=== PATIENT | female | born 1930 | race Caucasian/White ===

== ENCOUNTER 2016-07-06 11:47 | Inpatient (IN) | payer MEDICARE ==
--- NOTE | ~2016-07-06 | HP ---
History And Physical [facility] [address] [place] [address] NAME: YEIMY ALICEA : 32 STATUS : ADM Krissy PAT#: [id number] AGE: 85 ADM/REG DATE : 07/06/16 MR#: [id number] REPORT SERV DATE: 07/06/16 DICTATED BY: DIYA ANDINO DATE: 07/06/16 REPORT STATUS : Draft TRANSCRIBED BY: MODL DATE: 07/06/16 DATE OF ADMISSION: 07/06/2016 CHIEF COMPLAINT: Multiple. HISTORY OF PRESENT ILLNESS: The patient is an 85-year-old white female, who was actually just discharged from [facility] on 07/04/[address] Danuta Willingham. At that time, she had a fairly interesting hospital stay. She initially presented complaining of depression, confusion, abdominal pain. She had had weight loss and complained of lower abdominal pain. She had some nausea and some intermittent vomiting. She had an extensive evaluation during that stay. She had two CTs, one with contrast, one without. It looks like on CT, she may have had an acute enteritis. She also had a mesenteric duplex which was negative. She was ultimately treated with Flagyl and Levaquin. Her stool studies were negative. She did not have C difficile as she did not enough diarrhea to really even provide a stool for C difficile. She saw GI and the plan was to have her have an outpatient colonoscopy at some point. While she was there, she had an incidental leukocytosis, which was unexplained. All of her cultures were negative. Her CT scan really did not explain her white count and she was ultimately seen by Dr. Cummings. He saw the patient and thought that she probably had a reactive leukocytosis and thrombocytosis related to her enteritis and recommended followup in his office with possible bone marrow if it persisted. She states she went home, she did okay for about 24 hours, and then she started to have weakness. She states when she got up, she felt like she was going to pass out, she had difficulty walking, she was so weak. She had some associated nausea and some lower abdominal pain, but also had some new sputum that she did not have prior. Although she denies cough, she states she is coughing up sputum, it is bit difficult to tell the exact history. She denies fever, chest pain. Denies any upper abdominal pain. Has a documented temp at home. She has been eating or drinking when prompted. She continues to suffer from what sounds like some dementia symptoms, she has had memory loss that her brother has noticed, but no other real complaints. PAST MEDICAL HISTORY: 1. Depression. 2. Enteritis. 3. Hypertension. 4. Hyponatremia. 5. Leukocytosis. 6. 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 SOCIAL HISTORY: She does not drink or smoke. She currently has a brother who is living with her while she is sick, but previously she was independent. ALLERGIES: SULFA. PAST SURGICAL HISTORY: She has had a cholecystectomy, appendectomy. HOME MEDICATIONS: Reviewed and attached. History And Physical [address] [address] NAME: YEIMY ALICEA : 32 STATUS : ADM Krissy PAT#: [id number] AGE: 85 ADM/REG DATE : 07/06/16 MR#: [id number] REPORT SERV DATE: 07/06/16 DICTATED BY: DIYA ANDINO DATE: 07/06/16 REPORT STATUS : Draft TRANSCRIBED BY: TRINY DATE: 07/06/16 REVIEW OF SYSTEMS: A full 10-point review of systems was obtained. Pertinent positives already mentioned in the HPI. PHYSICAL EXAMINATION: VITAL SIGNS: BP 175/90, sats are 94%, temp 97.9, pulse 75, respiratory rate 16. GENERAL: Well-developed white female, in no obvious distress. HEENT: Normocephalic, atraumatic. Throat is clear. NECK: Supple. HEART: Regular rate and rhythm, but irregularly irregular. LUNGS: Grossly clear. ABDOMEN: Soft, nondistended, nontender. Positive bowel sounds are noted. EXTREMITIES: Warm and dry. She has no rashes noted. Pulses are 2+ at the feet. NEURO: Her speech is intact. Cranial nerves 2 through 12 are intact. She has symmetrical strength and tone in all four extremities. LABORATORY AND X-RAY: Chest x-ray shows a questionable left lower lobe infiltrate. CBC, white count 28.9, H and H 12 and 35, platelet count is 734. Coags are normal. Lactate is 1.8. Sodium 129, potassium 3.5, chloride 88, CO2 of 27, BUN and creatinine 12.1 and 0.55, glucose 165, albumin is 1.9. LFTs are normal. Lipase is 58. Troponins 0.02. All of her cultures from her previous visit including her stool and blood cultures were negative. ASSESSMENT/PLAN: 1. Nausea, vomiting with associated occasional intermittent abdominal pain. Workup so far negative with a white count of 28.9. Certainly, must consider more serious process. Her stool studies were initially negative, this did not include C difficile as she has not had diarrhea. She is not having diarrhea now. I think given her white count of 28.9 and no clear etiology, we would like to at least scan her one more time to make sure we are not missing something. She had a negative CT of her abdomen and pelvis. We will repeat her stool studies, if she has any additional diarrhea and go from there. 2. Sputum production with a new left lower lobe infiltrate. Certainly, pneumonia could cause the leukocytosis, although she does not have typical symptoms of pneumonia. She has no real cough. She is not hypoxemic. She does have a white count which I think we absolutely have to explain and rule out pneumonia, I am going to CT her chest while she is here also. We will culture her blood, her sputum. We will check a procalcitonin. I am going to place her empirically on some cefepime and vancomycin given the fact that she was recently in the hospital. 3. Recent enteritis. Again, repeating CT scan. 4. Leukocytosis, etiology still unclear. Certainly, could be noninfectious, but I think we should rule that out again. We will do urine culture, blood culture, check a procalcitonin. Again, we are going to re-image her abdomen and chest to make sure we are not missing something. If this is all negative, then we will have Dr. Cummings come back for likely a bone marrow biopsy. 5. Depression. Continue antidepressant. She saw Psych last time when she was here. I do not think she needs additional psych eval. 6. Recent onset of what sounds like dementia symptoms. Difficult to tell exactly how long History And Physical [address] [place]. [address] NAME: YEIMY ALICEA : 32 STATUS : ADM Krissy PAT#: [id number] AGE: 85 ADM/REG DATE : 07/06/16 MR#: [id number] REPORT SERV DATE: 07/06/16 DICTATED BY: DIYA ANDINO DATE: 07/06/16 REPORT STATUS : Draft TRANSCRIBED BY: TRINY DATE: 07/06/16 these have been going on because she was living by herself prior to her brother's arrival. I think we should continue to treat depression. I think she does need an MRI of her brain given that they think these symptoms are relatively new onset just to look for any findings of stroke or other explanations for her memory difficulties. 7. Hyponatremia. We will give some hydration with normal saline. I am also going to check an a.m. cortisol to rule out adrenal insufficiency. She has already had her thyroid function checked and it looked normal. 8. Protein-calorie malnutrition. She has diminished albumin. I am going to check a pre- albumin. She likely needs some supplements. She has not been eating well for sometime since she has been depressed about her . 9. Deep venous thrombosis prophylaxis. Subcutaneous Lovenox. 10.Disposition, pending above. MALENA/TRINY Diya Andino M.D. / [id number] CC: MD Terrie Alfaro [facility]
--- NOTE | ~2016-07-06 | IDS ---
Interim Discharge Summary [facility] [address] [place]. [address] NAME: YEIMY ALICEA : 32 STATUS : ADM IN PAT#: [id number] AGE: 85 ADM/REG DATE : 07/07/16 MR#: [id number] REPORT SERV DATE: 07/13/16 DICTATED BY: NADEGE CRABTREE DATE: 07/12/16 REPORT STATUS : Draft TRANSCRIBED BY: MODAlesha DATE: 07/12/16 ADMISSION DATE: 07/07/2016 DISCHARGE DATE: CURRENT ADMISSION DIAGNOSES: 1. Nausea and abdominal pain, resolved. 2. Physical deconditioning, pending rehab placement. 3. Leukocytosis. 4. Thrombocytosis. 5. Hypertension. 6. Depression. 7. Constipation, resolved. 8. Depression. 9. Currently being worked up by Oncology for myeloproliferative disorder. CURRENT CONDITION: Stable for discharge. CONSULTATION: Oncology. BRIEF HISTORY OF PRESENT ILLNESS: This is an 85-year-old female, who was recently discharged from [facility] on 07/04/2016, readmitted on 07/09/2016, with concerns for nausea, vomiting, and abdominal pain. In previous admission, the patient had extensive workup with CT of the abdomen that shows no evidence of acute intra-abdominal process, had a mesenteric Doppler that was negative. On readmission, the patient was noted to continued to have persistent leukocytosis and thrombocytosis. The patient was admitted to the Hospitalist Service for evaluation of etiology of nausea, vomiting, and intermittent abdominal pain as well as for further workup of leukocytosis and thrombocytosis and also a possible questionable pneumonia. HOSPITAL COURSE: 1. Nausea and vomiting. The patient had intermittent abdominal pain. The patient has an extensive workup, CT negative, mesenteric Doppler, CT abdomen pelvis negative, mesenteric Doppler negative, hepatic echo Doppler also negative for Budd-Chiari. The patient had a bowel movement yesterday and reported significant improvement in the nausea and vomiting. The patient was able to tolerate the lunch today without any further abdominal pain, nausea, or vomiting. The patient is currently stable for discharge. The patient was evaluated by physical therapy and recommended the patient to be discharged to acute rehab. The patient is currently placed in rehab and currently in discussion with brother. The patient will likely be discharged to rehab tomorrow. 2. Leukocytosis. The patient on initial admission noted to have leukocytosis in the 20,000, initially thought to be due to possible pneumonia. The patient had an extensive period of broad-spectrum IV antibiotics, IV vancomycin, and Zosyn. Despite seven days therapy of IV vancomycin and Zosyn, the patient's leukocytosis remained persistent. Oncology was consulted for possible workup for myeloproliferative disorder. Multiple Oncology tracts were ordered including blood test, PCR test, which Interim Discharge Summary [address] [address] NAME: YEIMY ALICEA : 32 STATUS : ADM IN PAT#: [id number] AGE: 85 ADM/REG DATE : 07/07/16 MR#: [id number] REPORT SERV DATE: 07/13/16 DICTATED BY: NADEGE CRABTREE DATE: 07/12/16 REPORT STATUS : Draft TRANSCRIBED BY: TRINY DATE: 07/12/16 include JAK2 mutation test. This test results are currently pending by Oncology. If the patient is stable, the patient can follow up in clinic. Prior to discharge, please notify Oncology. Oncology is still actively following the patient; however, it is stated in their note that the patient may follow up in clinic if stable clinically. At this point, I believe the patient is stable clinically. If she continues to have no further episodes of nausea and vomiting, I believe she can be discharged to subacute rehab to follow up with Oncology as an outpatient with the result of test already ordered possible. 3. Depression, currently on antidepressant with Zoloft. 4. Thrombocytosis, etiology questionable myeloproliferative disorder, currently being workup as stated above. 5. Current condition, stable for discharge possible to subacute rehab. IOO/MODL Nadege Crabtree MD / [id number] CC: Nadege Crabtree MD [facility]
--- NOTE | ~2016-07-06 | DS ---
Discharge Summary [facility] [address] [facility] [place]. [address] NAME: YEIMY ALICEA : 32 STATUS : DIS IN PAT#: [id number] AGE: 85 ADM/REG DATE : 07/07/16 MR#: [id number] REPORT SERV DATE: 07/14/16 DICTATED BY: CACHORRO TURK DATE: 07/13/16 REPORT STATUS : Draft TRANSCRIBED BY: MODAlesha DATE: 07/13/16 ADMISSION DATE: 07/07/2016 DISCHARGE DATE: 07/13/2016 The patient is an 85-year-old female, with a history of hypertension, hyponatremia, depression who presented to the hospital with multiple complaints and was admitted under Hospitalist Service for further management. For further details, please refer to H and P dictated by Dr. Andino on 07/06/2016. HOSPITAL COURSE: Please refer to interim discharge summary dictated by Dr. Giraldo on 07/13/2016. In addition, the patient was stable for discharge per PT evaluation. Recommendations were for patient to be discharged to subacute rehab. The Case Management was consulted to assist in rehab placement. Rehab placement was found, however, insurance approval was pending. Insurance approval has been obtained. The patient is therefore ready to be discharged to subacute rehab. Everything else remains the same. Greater than 30 minutes was spent on chart review, medication reconciliation, coordinating care, discussion with nurse, and Case Management. JOSÉ MIGUEL/TRINY Cachorro Turk MD / [id number] CC: Cachorro Turk MD [facility]
[2016-07-06 11:17] LABS: BASOPHILS 0.1 %; BASOPHILS ABSOLUTE 0.04 10/3/uL (0.0-0.16); EOSINOPHILS 0 %; EOSINOPHILS ABSOLUTE 0.01 10/3/uL (0.0-0.53); HEMOGLOBIN 11.8 g/dL (12.0-16.0); IMMATURE GRANULOCYTES 1.4 %; LYMPHOCYTES 7.7 %; LYMPHOCYTES ABSOLUTE 2.22 10/3/uL (0.67-4.30); MEAN CORPUS HGB CONC 33.9 g/dL (32.0-36.0); MEAN CORPUSCULAR HEMOGLOB 27.6 pg (26.0-34.0); MEAN CORPUSCULAR VOLUME 81.5 fL (80-100); MEAN PLATELET VOLUME 8.6 fL (9.2-13.0); MONOCYTES ABSOLUTE 0.59 10/3/uL (0.21-1.20); NEUTROPHILS 88.8 %; NEUTROPHILS ABSOLUTE 25.66 10/3/uL (2.02-8.40); RBC DISTRIBUTION WIDTH 13.3 % (12.0-16.0); RED CELL COUNT 4.27 10/6/uL (4.0-5.6)
[2016-07-06 11:19] LABS: ER CBC TAT 0 Hrs 13 Mins; HEMATOCRIT 34.8 % (36.0-48.0); PLATELET COUNT 734 10/3/uL (150-400); WHITE BLOOD CELLS 28.9 10/3/uL (4.5-10.5)
[2016-07-06 11:20] LABS: MANUAL DIFF NO %
[2016-07-06 11:27] LABS: INTERNATIONAL NORMAL RATI 1.3 UNITS (-); PARTIAL THROMBO TIME 31.8 SEC (22.5-37.2); PROTIME (NOT ORD) 15.9 SEC (12.0-14.5)
[2016-07-06 11:32] LABS: A/G RATIO 0.4 (0.7-1.9); ALBUMIN 1.9 G/DL (3.5-5.0); CALCIUM, SERUM 8.8 MG/DL (8.5-10.4); CO2 (CARBON DIOXIDE) 27 MMOL/L (24-34); CREATININE 0.55 MG/DL (0.55-1.02); GFR AFRICAN AMERICAN 100 ML/MIN (>=60); GFR NON AFRICAN AMERICAN 86 ML/MIN (>=60); GLOBULIN 4.6 G/DL (2.5-4.1); POTASSIUM, SERUM 3.5 MMOL/L (3.5-5.3); SGOT(AST) 26 U/L (5-40); SGPT(ALT) 24 U/L (5-65); SODIUM, SERUM 129 MMOL/L (135-148); TOTAL BILIRUBIN 0.4 MG/DL (0-1.2); TOTAL PROTEIN 6.5 G/DL (6.0-8.5); TROPONIN I <0.02 NG/ML (<0.05)
[2016-07-06 11:33] LABS: ALKALINE PHOSPHATASE 81 U/L (45-117); BUN (BLOOD UREA NITROGEN) 12 MG/DL (6-23); CHLORIDE, SERUM 88 MMOL/L (96-112); GLUCOSE, SERUM 165 MG/DL (60-99)
[2016-07-06 11:34] LABS: LACTATE 1.8 MMOL/L (0.3-2.4)
[2016-07-06 11:43] LABS: ER DIFF TAT 0 Hrs 37 Mins; LYMPHOCYTES 6 %; LYMPHOCYTES ABSOLUTE (CALC) 1.73 10/3/uL (0.67-4.30); MONOCYTES 4 %; MONOCYTES ABSOLUTE (CALC) 1.16 10/3/uL (0.21-1.20); NEUTROPHILS ABSOLUTE (CALC) 26.01 10/3/uL (2.02-8.40); SEGMENTED NEUTROPHIL (0) 90 %; TOTAL NUCLEATED CELLS 100
[2016-07-06 11:44] LABS: RBC MORPHOLOGY NORM (NORMAL)
[~2016-07-06 11:47] MED LIST: *UNABLE1; B1100 PO; COZ50 PO; FLAG500TAB PO; FLONASE NAS; IMDUR30 PO; INDAPAMIDE PO; INDAPAMIDE1.25 MG PO; LEVAQUIN750 MG PO; LOP25 PO; MIRALAX POWDER1 PKT PO; SYSTANE OPH; X25 PO; ZYRTEC ALLGY10 MG PO; [UNRECOGNIZED DRUG - CODE] PO; [UNRECOGNIZED DRUG - OTHER] PO; [UNRECOGNIZED DRUG - REMARK]
[2016-07-06 16:12] LABS: RETICULOCYTE COUNT 1.9 % (0.5-2.5)
[2016-07-06 16:21] LABS: FREE T4 1.66 NG/DL (0.76-1.46)
[2016-07-06 17:50] LABS: PROCALCITONIN 0.09 ng/mL (<0.5)
[2016-07-07 03:41] LABS: HEMATOCRIT 31.7 % (36.0-48.0); HEMOGLOBIN 10.8 g/dL (12.0-16.0); MEAN CORPUS HGB CONC 34.1 g/dL (32.0-36.0); MEAN CORPUSCULAR VOLUME 82.1 fL (80-100); MEAN PLATELET VOLUME 8.4 fL (9.2-13.0); RBC DISTRIBUTION WIDTH 13.2 % (12.0-16.0); RED CELL COUNT 3.86 10/6/uL (4.0-5.6)
[2016-07-07 03:44] LABS: MANUAL DIFF YES %; PLATELET COUNT 739 10/3/uL (150-400); WHITE BLOOD CELLS 27.2 10/3/uL (4.5-10.5)
[2016-07-07 03:54] LABS: BUN (BLOOD UREA NITROGEN) 13 MG/DL (6-23); CALCIUM, SERUM 8.2 MG/DL (8.5-10.4); CHLORIDE, SERUM 92 MMOL/L (96-112); CO2 (CARBON DIOXIDE) 26 MMOL/L (24-34); CREATININE 0.42 MG/DL (0.55-1.02); GFR AFRICAN AMERICAN 109 ML/MIN (>=60); GFR NON AFRICAN AMERICAN 94 ML/MIN (>=60); GLUCOSE, SERUM 165 MG/DL (60-99); POTASSIUM, SERUM 3.4 MMOL/L (3.5-5.3); SODIUM, SERUM 130 MMOL/L (135-148)
[2016-07-07 04:27] LABS: LYMPHOCYTES 11 %; LYMPHOCYTES ABSOLUTE (CALC) 2.99 10/3/uL (0.67-4.30); MONOCYTES 6 %; MONOCYTES ABSOLUTE (CALC) 1.63 10/3/uL (0.21-1.20); NEUTROPHILS ABSOLUTE (CALC) 22.58 10/3/uL (2.02-8.40); SEGMENTED NEUTROPHIL (0) 83 %; TOTAL NUCLEATED CELLS 100
[2016-07-08 06:22] LABS: HEMATOCRIT 31.1 % (36.0-48.0); HEMOGLOBIN 10.6 g/dL (12.0-16.0); MEAN CORPUS HGB CONC 34.1 g/dL (32.0-36.0); MEAN CORPUSCULAR HEMOGLOB 28.1 pg (26.0-34.0); MEAN CORPUSCULAR VOLUME 82.5 fL (80-100); MEAN PLATELET VOLUME 8.4 fL (9.2-13.0); RBC DISTRIBUTION WIDTH 13.6 % (12.0-16.0); RED CELL COUNT 3.77 10/6/uL (4.0-5.6)
[2016-07-08 06:30] LABS: PLATELET COUNT 780 10/3/uL (150-400); WHITE BLOOD CELLS 27.4 10/3/uL (4.5-10.5)
[2016-07-08 06:31] LABS: MANUAL DIFF YES %
[2016-07-08 06:41] LABS: BUN (BLOOD UREA NITROGEN) 15 MG/DL (6-23); CALCIUM, SERUM 8.5 MG/DL (8.5-10.4); CHLORIDE, SERUM 95 MMOL/L (96-112); CO2 (CARBON DIOXIDE) 24 MMOL/L (24-34); CREATININE 0.44 MG/DL (0.55-1.02); GFR AFRICAN AMERICAN 107 ML/MIN (>=60); GFR NON AFRICAN AMERICAN 93 ML/MIN (>=60); GLUCOSE, SERUM 147 MG/DL (60-99); POTASSIUM, SERUM 3.4 MMOL/L (3.5-5.3); SODIUM, SERUM 129 MMOL/L (135-148)
[2016-07-08 06:42] LABS: ULTRASENSITIVE TSH 0.987 MCIU/ML (0.358-3.740)
[2016-07-08 07:12] LABS: LYMPHOCYTES 6 %; LYMPHOCYTES ABSOLUTE (CALC) 1.64 10/3/uL (0.67-4.30); MONOCYTES 6 %; MONOCYTES ABSOLUTE (CALC) 1.64 10/3/uL (0.21-1.20); NEUTROPHILS ABSOLUTE (CALC) 24.11 10/3/uL (2.02-8.40); SEGMENTED NEUTROPHIL (0) 88 %; TOTAL NUCLEATED CELLS 100
[2016-07-08 07:13] LABS: RBC MORPHOLOGY NORM (NORMAL)
[2016-07-09 05:35] LABS: BASOPHILS 0.1 %; BASOPHILS ABSOLUTE 0.02 10/3/uL (0.0-0.16); EOSINOPHILS 0.3 %; EOSINOPHILS ABSOLUTE 0.07 10/3/uL (0.0-0.53); HEMATOCRIT 29.1 % (36.0-48.0); HEMOGLOBIN 9.9 g/dL (12.0-16.0); IMMATURE GRANULOCYTES 1.1 %; IMMATURE GRANULOCYTES ABSOLUTE 0.26 10/3/uL (0.0-0.11); LYMPHOCYTES ABSOLUTE 1.61 10/3/uL (0.67-4.30); MEAN CORPUSCULAR HEMOGLOB 28.3 pg (26.0-34.0); MEAN CORPUSCULAR VOLUME 83.1 fL (80-100); MEAN PLATELET VOLUME 8.5 fL (9.2-13.0); MONOCYTES 6.1 %; MONOCYTES ABSOLUTE 1.41 10/3/uL (0.21-1.20); NEUTROPHILS 85.4 %; NEUTROPHILS ABSOLUTE 19.73 10/3/uL (2.02-8.40); PLATELET COUNT 660 10/3/uL (150-400); RBC DISTRIBUTION WIDTH 13.6 % (12.0-16.0); WHITE BLOOD CELLS 23.1 10/3/uL (4.5-10.5)
[2016-07-09 05:37] LABS: MANUAL DIFF NO %
[2016-07-09 05:46] LABS: CALCIUM, SERUM 8.8 MG/DL (8.5-10.4); CHLORIDE, SERUM 97 MMOL/L (96-112); CO2 (CARBON DIOXIDE) 25 MMOL/L (24-34); CREATININE 0.62 MG/DL (0.55-1.02); GFR AFRICAN AMERICAN 96 ML/MIN (>=60); GFR NON AFRICAN AMERICAN 83 ML/MIN (>=60); POTASSIUM, SERUM 3.7 MMOL/L (3.5-5.3); SODIUM, SERUM 131 MMOL/L (135-148)
[2016-07-09 05:49] LABS: BUN (BLOOD UREA NITROGEN) 20 MG/DL (6-23); GLUCOSE, SERUM 100 MG/DL (60-99)
[2016-07-10 07:14] LABS: BASOPHILS 0.2 %; BASOPHILS ABSOLUTE 0.05 10/3/uL (0.0-0.16); EOSINOPHILS 0.7 %; EOSINOPHILS ABSOLUTE 0.15 10/3/uL (0.0-0.53); HEMATOCRIT 27.7 % (36.0-48.0); HEMOGLOBIN 9.3 g/dL (12.0-16.0); IMMATURE GRANULOCYTES 1.6 %; IMMATURE GRANULOCYTES ABSOLUTE 0.32 10/3/uL (0.0-0.11); LYMPHOCYTES 8.3 %; LYMPHOCYTES ABSOLUTE 1.67 10/3/uL (0.67-4.30); MEAN CORPUS HGB CONC 33.6 g/dL (32.0-36.0); MEAN CORPUSCULAR VOLUME 83.4 fL (80-100); MEAN PLATELET VOLUME 8.7 fL (9.2-13.0); MONOCYTES 6.4 %; MONOCYTES ABSOLUTE 1.28 10/3/uL (0.21-1.20); NEUTROPHILS 82.8 %; NEUTROPHILS ABSOLUTE 16.61 10/3/uL (2.02-8.40); PLATELET COUNT 554 10/3/uL (150-400); RBC DISTRIBUTION WIDTH 13.7 % (12.0-16.0); RED CELL COUNT 3.32 10/6/uL (4.0-5.6); WHITE BLOOD CELLS 20.1 10/3/uL (4.5-10.5)
[2016-07-10 07:20] LABS: MANUAL DIFF NO %
[2016-07-10 07:24] LABS: BUN (BLOOD UREA NITROGEN) 20 MG/DL (6-23); CALCIUM, SERUM 8.7 MG/DL (8.5-10.4); CHLORIDE, SERUM 97 MMOL/L (96-112); CO2 (CARBON DIOXIDE) 25 MMOL/L (24-34); CREATININE 0.56 MG/DL (0.55-1.02); GFR AFRICAN AMERICAN 99 ML/MIN (>=60); GFR NON AFRICAN AMERICAN 86 ML/MIN (>=60); GLUCOSE, SERUM 88 MG/DL (60-99); SODIUM, SERUM 131 MMOL/L (135-148)
[2016-07-10 07:26] LABS: POTASSIUM, SERUM 4.5 MMOL/L (3.5-5.3)
[2016-07-11 07:01] LABS: BASOPHILS 0.1 %; BASOPHILS ABSOLUTE 0.02 10/3/uL (0.0-0.16); EOSINOPHILS 0.7 %; EOSINOPHILS ABSOLUTE 0.14 10/3/uL (0.0-0.53); HEMATOCRIT 28.6 % (36.0-48.0); HEMOGLOBIN 9.4 g/dL (12.0-16.0); IMMATURE GRANULOCYTES 1.9 %; IMMATURE GRANULOCYTES ABSOLUTE 0.39 10/3/uL (0.0-0.11); LYMPHOCYTES 6.3 %; MEAN CORPUS HGB CONC 32.9 g/dL (32.0-36.0); MEAN CORPUSCULAR HEMOGLOB 27.1 pg (26.0-34.0); MEAN CORPUSCULAR VOLUME 82.4 fL (80-100); MONOCYTES 7.6 %; MONOCYTES ABSOLUTE 1.57 10/3/uL (0.21-1.20); NEUTROPHILS 83.4 %; NEUTROPHILS ABSOLUTE 17.25 10/3/uL (2.02-8.40); PLATELET COUNT 536 10/3/uL (150-400); RBC DISTRIBUTION WIDTH 13.8 % (12.0-16.0); RED CELL COUNT 3.47 10/6/uL (4.0-5.6); WHITE BLOOD CELLS 20.7 10/3/uL (4.5-10.5)
[2016-07-11 07:02] LABS: MANUAL DIFF NO %
[2016-07-11 08:26] LABS: ALBUMIN 1.6 G/DL (3.5-5.0); BUN (BLOOD UREA NITROGEN) 16 MG/DL (6-23); CALCIUM, SERUM 8.7 MG/DL (8.5-10.4); CHLORIDE, SERUM 98 MMOL/L (96-112); CO2 (CARBON DIOXIDE) 24 MMOL/L (24-34); CREATININE 0.42 MG/DL (0.55-1.02); GFR AFRICAN AMERICAN 109 ML/MIN (>=60); GFR NON AFRICAN AMERICAN 94 ML/MIN (>=60); GLUCOSE, SERUM 107 MG/DL (60-99); POTASSIUM, SERUM 4.5 MMOL/L (3.5-5.3); SODIUM, SERUM 131 MMOL/L (135-148)
[2016-07-11 17:27] LABS: BASOPHILS 0.2 %; BASOPHILS ABSOLUTE 0.03 10/3/uL (0.0-0.16); EOSINOPHILS 0.7 %; EOSINOPHILS ABSOLUTE 0.12 10/3/uL (0.0-0.53); HEMATOCRIT 28.1 % (36.0-48.0); HEMOGLOBIN 9.5 g/dL (12.0-16.0); IMMATURE GRANULOCYTES 1.5 %; IMMATURE GRANULOCYTES ABSOLUTE 0.28 10/3/uL (0.0-0.11); LYMPHOCYTES 6.1 %; MANUAL DIFF NO %; MEAN CORPUS HGB CONC 33.8 g/dL (32.0-36.0); MEAN CORPUSCULAR HEMOGLOB 28.4 pg (26.0-34.0); MEAN CORPUSCULAR VOLUME 83.9 fL (80-100); MEAN PLATELET VOLUME 8.4 fL (9.2-13.0); MONOCYTES 7.9 %; MONOCYTES ABSOLUTE 1.43 10/3/uL (0.21-1.20); NEUTROPHILS 83.6 %; NEUTROPHILS ABSOLUTE 15.16 10/3/uL (2.02-8.40); PLATELET COUNT 540 10/3/uL (150-400); RBC DISTRIBUTION WIDTH 13.9 % (12.0-16.0); RED CELL COUNT 3.35 10/6/uL (4.0-5.6); WHITE BLOOD CELLS 18.1 10/3/uL (4.5-10.5)
[2016-07-11 17:44] LABS: ALBUMIN 1.6 G/DL (3.5-5.0); BUN (BLOOD UREA NITROGEN) 15 MG/DL (6-23); CALCIUM, SERUM 8.6 MG/DL (8.5-10.4); CHLORIDE, SERUM 94 MMOL/L (96-112); CO2 (CARBON DIOXIDE) 27 MMOL/L (24-34); CREATININE 0.56 MG/DL (0.55-1.02); GFR AFRICAN AMERICAN 99 ML/MIN (>=60); GFR NON AFRICAN AMERICAN 86 ML/MIN (>=60); PHOSPHORUS, SERUM 2.4 MG/DL (2.5-4.5); POTASSIUM, SERUM 4.4 MMOL/L (3.5-5.3); SODIUM, SERUM 130 MMOL/L (135-148)
[2016-07-11 17:47] LABS: GLUCOSE, SERUM 185 MG/DL (60-99)
[2016-07-12 06:17] LABS: BASOPHILS 0.3 %; BASOPHILS ABSOLUTE 0.05 10/3/uL (0.0-0.16); EOSINOPHILS 0.9 %; EOSINOPHILS ABSOLUTE 0.18 10/3/uL (0.0-0.53); HEMATOCRIT 28.1 % (36.0-48.0); HEMOGLOBIN 9.3 g/dL (12.0-16.0); IMMATURE GRANULOCYTES ABSOLUTE 0.39 10/3/uL (0.0-0.11); LYMPHOCYTES 9.4 %; LYMPHOCYTES ABSOLUTE 1.86 10/3/uL (0.67-4.30); MEAN CORPUS HGB CONC 33.1 g/dL (32.0-36.0); MEAN CORPUSCULAR HEMOGLOB 27.8 pg (26.0-34.0); MEAN CORPUSCULAR VOLUME 84.1 fL (80-100); MEAN PLATELET VOLUME 8.9 fL (9.2-13.0); MONOCYTES 5.9 %; MONOCYTES ABSOLUTE 1.18 10/3/uL (0.21-1.20); NEUTROPHILS 81.5 %; PLATELET COUNT 539 10/3/uL (150-400); RED CELL COUNT 3.34 10/6/uL (4.0-5.6); WHITE BLOOD CELLS 19.9 10/3/uL (4.5-10.5)
[2016-07-12 06:28] LABS: MANUAL DIFF NO %
[2016-07-12 06:29] LABS: ALBUMIN 1.6 G/DL (3.5-5.0); BUN (BLOOD UREA NITROGEN) 14 MG/DL (6-23); CALCIUM, SERUM 9.1 MG/DL (8.5-10.4); CHLORIDE, SERUM 96 MMOL/L (96-112); CO2 (CARBON DIOXIDE) 26 MMOL/L (24-34); CREATININE 0.41 MG/DL (0.55-1.02); GFR AFRICAN AMERICAN 110 ML/MIN (>=60); GFR NON AFRICAN AMERICAN 95 ML/MIN (>=60); PHOSPHORUS, SERUM 2.6 MG/DL (2.5-4.5); POTASSIUM, SERUM 4.5 MMOL/L (3.5-5.3); SODIUM, SERUM 131 MMOL/L (135-148)
[2016-07-12 06:34] LABS: GLUCOSE, SERUM 101 MG/DL (60-99)
[2016-07-13 05:56] LABS: BASOPHILS 0.1 %; BASOPHILS ABSOLUTE 0.02 10/3/uL (0.0-0.16); EOSINOPHILS ABSOLUTE 0.19 10/3/uL (0.0-0.53); HEMATOCRIT 28.2 % (36.0-48.0); HEMOGLOBIN 9.3 g/dL (12.0-16.0); IMMATURE GRANULOCYTES 1.8 %; IMMATURE GRANULOCYTES ABSOLUTE 0.32 10/3/uL (0.0-0.11); LYMPHOCYTES 8.7 %; LYMPHOCYTES ABSOLUTE 1.57 10/3/uL (0.67-4.30); MANUAL DIFF NO %; MEAN CORPUSCULAR HEMOGLOB 27.4 pg (26.0-34.0); MEAN CORPUSCULAR VOLUME 82.9 fL (80-100); MEAN PLATELET VOLUME 9.1 fL (9.2-13.0); MONOCYTES 7.8 %; MONOCYTES ABSOLUTE 1.41 10/3/uL (0.21-1.20); NEUTROPHILS 80.6 %; NEUTROPHILS ABSOLUTE 14.59 10/3/uL (2.02-8.40); PLATELET COUNT 526 10/3/uL (150-400); RBC DISTRIBUTION WIDTH 14.1 % (12.0-16.0); WHITE BLOOD CELLS 18.1 10/3/uL (4.5-10.5)
== END 2016-07-13 15:50 | DRG 841 ==
LOC: ER 11:47 → CDU1 13:01 → 2SO 07-07 19:56
PROVIDERS: Hospitalist; Internal Medicine; Nurse Practitioner
DX: C94.6 Myelodysplastic disease, not elsewhere classified (principal); E46 Unspecified protein-calorie malnutrition; F03.90 Unspecified dementia, unspecified severity, without behavioral disturbance, psychotic disturbance, mood disturbance, and anxiety; E87.1 Hypo-osmolality and hyponatremia; D64.9 Anemia, unspecified; G31.84 Mild cognitive impairment of uncertain or unknown etiology; R11.2 Nausea with vomiting, unspecified; F32.9 Major depressive disorder, single episode, unspecified; I10 Essential (primary) hypertension; D47.3 Essential (hemorrhagic) thrombocythemia; K59.00 Constipation, unspecified; G47.00 Insomnia, unspecified; Z98.890 Other specified postprocedural states; Z88.2 Allergy status to sulfonamides
CPT/HCPCS: 70551; 71010; 71250; 74176; 80048; 80053; 80069; 80202; 81001; 81270; 82024; 82533; 83605; 83690; 83735; 84145; 84439; 84443; 84484; 84999; 85025; 85045; 85610; 85730; 87040; 88367; 88367-59; 93005; 93975; 97161-GP; 99285; A9270-GY; G8978-CI-GP; G8979-CH-GP; J0360; J0692; J2405; J2765; J3370; J3411